=== PATIENT | male | born 1950 | race Caucasian/White ===

== ENCOUNTER 2018-09-02 01:01 | Outpatient (CLI) | payer MEDICARE ==
[2018-09-02 17:19] LABS: #Basophils 0.1 thou/uL (0.0-0.2); #Eosinphils 0.5 thou/uL (0.0-0.7); #Lymphocytes 1.2 thou/uL (1.20-3.40); #Monocytes 0.5 thou/uL (0.11-0.59); %Basophils 1.3 % (0.0-1.0); %Eosinophils 8.9 % (0.0-10.0); %Lymphocytes 23.3 % (21.0-51.0); %Monocytes 9.8 % (0.0-10.0); %Neutrophils 56.8 % (42.0-75.0); Hemoglobin 12.5 g/dL (14.0-18.0); Mean Corpuscular HGB CONC 33.1 g/dL (32.0-36.0); Mean Corpuscular Hemoglobin 32.5 pg (27.0-31.0); Mean Corpuscular Volume 98.2 fL (78.0-98.0); Mean Platelet Volume 7.1 fL (7.4-10.4); Platelet Count 232 thou/uL (130-400); RBC Distribution Width 10.9 % (11.5-14.5); Red Blood Cell (RBC) Count 3.83 mill/uL (4.70-6.10); White Blood Cell (WBC) Count 5.3 thou/uL (4.8-10.8)
[2018-09-02 17:32] LABS: Anion Gap 14 mmol/L (10-20); BUN (Urea Nitrogen) 20 mg/dL (8.4-25.7); Calc. Creatinine Clearance 0 mL/min (70-130); Calcium 9.4 mg/dL (7.8-10.44); Carbon Dioxide 25 mmol/L (23-31); Chloride 99 mmol/L (98-107); Estimated GFR-MDRD 69; Glucose 96 mg/dL (80-115); Sodium 134 mmol/L (136-145)
--- NOTE | 2018-09-03 18:13 | EKG ---
Test Reason : Blood Pressure : / mmHG Vent. Rate : 068 BPM Atrial Rate : 068 BPM P-R Int : 166 ms QRS Dur : 100 ms QT Int : 398 ms P-R-T Axes : 062 065 046 degrees QTc Int : 423 ms Normal sinus rhythm Normal ECG When compared with ECG of 02-DEC-2011 08:21, No significant change was found Confirmed by DR. Christine PALMER ([id number]) on 09/03/2018 6:13:31 PM Referred By: DEON Confirmed By:DR. Christine PALMER
== END 2018-09-02 01:02 | disposition home or self-care (01) ==
LOC: LABBT 01:01
PROVIDERS: ATTEND Orthopaedic Surgery
DX: Z01.818 Encounter for other preprocedural examination (principal); S83.206A Unspecified tear of unspecified meniscus, current injury, right knee, initial encounter
CPT/HCPCS: 80048; 85025; 93005; 93010

== ENCOUNTER → 2018-09-04 | Day surgery (SDC) | payer MEDICARE ==
[2018-09-02 16:21] VITALS: BMI 26.6
[~2018-09-04] MED LIST: Bupivacaine HCl 0.5%/Epinephrine 1:200,000/PF 30 ml Vial ONE; Dexamethasone 20 MG/5 ML VIAL ONE; Fentanyl 100 MCG/2 ML VIAL ONE; Ketorolac Tromethamine 30 MG/ML VIAL ONE; Lidocaine 1% PF 5 ML VIAL ONE; Lidocaine 2% w/Epinephrine 1:200K 20 ML VIAL ONE; Ondansetron PF 4 MG/2 ML Vial ONE; PROPOFOL 20 ML ONE; PROPOFOL 200 MG/20 ML VIAL ONE; ceFAZolin Sodium 2 GM/100 ML BAG ONE
--- NOTE | 2018-09-04 10:35 | OP ---
DATE OF PROCEDURE: 09/04/2018 PREOPERATIVE DIAGNOSIS: Right knee medial and lateral meniscus tear. POSTOPERATIVE DIAGNOSIS: Right knee medial and lateral meniscus tear. PROCEDURE PERFORMED: Right knee arthroscopy, partial medial and lateral meniscectomies. SWATCH FOLDER: None. ESTIMATED BLOOD LOSS: There was no blood loss. COMPLICATIONS: No significant complication. ANESTHESIA: He did have a general anesthetic as well as a local knee block. DISPOSITION: He went to recovery room in stable condition. INDICATIONS: This is an active 68-year-old male, who had mechanical complaints of pain and swelling and was found on MRI scan to have significant meniscal pathology with some mild chondromalacia. At this time, he opted to have surgery. DESCRIPTION OF PROCEDURE: After all appropriate consent forms were explained and signed, he was taken back to the operative room and at this time was given a general anesthetic. Once the level of anesthesia was appropriate, a tourniquet was placed on the right thigh and leg was placed in arthroscopic leg marrufo. The limb was then prepped and draped in standard surgical fashion. The limb was then exsanguinated and the tourniquet was taken to 300 mmHg. Inferolateral portal was established. Scope was placed into the knee joint. A needle localization technique was then used to make a medial working portal. Diagnostic arthroscopy commenced in the notch. ACL and PCL were probed, found to be intact. There was a large osteophyte along the lateral femoral condyle in the notch. This was left alone. The medial compartment overall shows some early chondromalacia on the tibia with little bit of fissuring, but for the most part, both the femur and the tibia on the medial side were in pretty good shape. There was a posterior horn of medial meniscus tear and a partial meniscectomy was performed using meniscal biter and shaver. In the lateral compartment, there was some wear centrally in the lateral tibial plateau. The femur itself was pretty good shape. There was a large flap tear of the anterior horn of the lateral meniscus and this was removed with the shaver and biter back to a stable base. The popliteus tendon was intact. The gutters were swept through. No loose bodies were noted. The patellofemoral joint showed the patella to be in good condition as well as the trochlea. At this time, scope was removed. Knee was drained. Portals were closed with simple nylon stitch. Bulky sterile dressing was applied. Tourniquet was let down. Toes pinked up nicely. The patient was awakened, taken to recovery room in stable condition. All counts were correct at the end of the case, and he did receive preoperative IV antibiotics. Job ID: [id number]
== END ==
LOC: SDC 05:34
PROVIDERS: ATTEND Orthopaedic Surgery
PROC: 0SBC4ZZ Excision of Right Knee Joint, Percutaneous Endoscopic Approach (ICD-10-PCS; principal; 2018-09-04)
PROC: 0SBC4ZZ Excision of Right Knee Joint, Percutaneous Endoscopic Approach (ICD-10-PCS; 2018-09-04)
DX: S83.241A Other tear of medial meniscus, current injury, right knee, initial encounter (principal); S83.281A Other tear of lateral meniscus, current injury, right knee, initial encounter; M94.261 Chondromalacia, right knee; K21.9 Gastro-esophageal reflux disease without esophagitis; M19.90 Unspecified osteoarthritis, unspecified site; J45.909 Unspecified asthma, uncomplicated; Z87.891 Personal history of nicotine dependence; Z79.899 Other long term (current) drug therapy; Z88.8 Allergy status to other drugs, medicaments and biological substances; X50.1XXA Overexertion from prolonged static or awkward postures, initial encounter
CPT/HCPCS: J0670; J0690; J1100; J1885; J2001; J2405; J2704; J3010

== ENCOUNTER 2022-09-28 09:52 | Outpatient (CLI) | payer MEDICARE ==
[2022-09-28 11:31] LABS: #Eosinphils 0.2 10x3/uL (0.0-0.5); #Monocytes 0.4 10x3/uL (0.0-1.1); #Neutrophils 1.9 10x3/uL (1.5-8.4); %Basophils 0.8 % (0.0-2.0); %Eosinophils 4.2 % (0.0-6.0); %Lymphocytes 28.9 % (18.0-47.0); %Monocytes 12.4 % (0.0-10.0); %Neutrophils 53.7 % (40.0-75.0); Hemoglobin 13.3 g/dL (13.5-17.5); Mean Corpuscular HGB CONC 33.5 g/dL (32.0-36.0); Mean Corpuscular Volume 95.7 fl (81.2-95.1); Platelet Count 171 10x3/uL (150-450); RBC Distribution Width 11.8 % (11.5-14.5); Red Blood Cell (RBC) Count 4.15 10x6/uL (4.32-5.72); White Blood Cell (WBC) Count 3.6 10x3/uL (3.5-10.5)
== END 2022-09-28 09:53 | disposition home or self-care (01) ==
LOC: LABBT 09:52
PROVIDERS: ATTEND Orthopaedic Surgery Hand Surgery
DX: Z01.818 Encounter for other preprocedural examination (principal); M19.042 Primary osteoarthritis, left hand
CPT/HCPCS: 85025; 93005; 93010

== ENCOUNTER 2022-10-03 06:08 | Day surgery (SDC) | payer MEDICARE ==
[2022-09-28 15:45] VITALS: BMI 24.3
[2022-10-03] MEDS ORDERED: Bupivacaine PF 0.5% 30 ML VIAL ONE ×2 (07:38→07:46)
[2022-10-03] MEDS ORDERED: Bacitracin Zinc Ointment 30 gm TUBE ONE (07:39)
[2022-10-03] MEDS ORDERED: Neomycin-Polymyxin 1 ML AMP ONE (07:39)
[2022-10-03] MEDS ORDERED: EPINEPHrine 1 MG/ML AMP ONE (07:46)
[2022-10-03] MEDS ORDERED: fentaNYL 50 mcg/mL 1 mL Vial ONE (07:46)
[2022-10-03] MEDS ORDERED: Sodium Chloride 0.9% 100 ML ONE (08:06)
[2022-10-03] MEDS ORDERED: CEFAZOLIN 2 GM VIAL ONE (08:06)
[2022-10-03] MEDS ORDERED: fentaNYL PF 100 MCG/2 ML SYRINGE ONE (08:09)
[2022-10-03] MEDS ORDERED: Lidocaine 1% PF 5 ML VIAL ONE (08:15)
[2022-10-03] MEDS ORDERED: PROPOFOL 200 MG/20 ML VIAL ONE (08:15)
[2022-10-03] MEDS ORDERED: Dexamethasone 20 MG/5 ML VIAL ONE (08:15)
[2022-10-03] MEDS ORDERED: ePHEDrine Sulfate 50 MG/10 ML VIAL ONE (08:15)
[2022-10-03] MEDS ORDERED: Ondansetron PF 4 MG/2 ML Vial ONE (08:15)
== END 2022-10-03 12:31 | disposition home or self-care (01) ==
LOC: SDC 06:08
PROVIDERS: ATTEND Orthopaedic Surgery Hand Surgery
PROC: 0RUT07Z Supplement Left Carpometacarpal Joint with Autologous Tissue Substitute, Open Approach (ICD-10-PCS; principal; 2022-10-03)
DX: M18.0 Bilateral primary osteoarthritis of first carpometacarpal joints (principal); M67.431 Ganglion, right wrist; K21.9 Gastro-esophageal reflux disease without esophagitis; J45.909 Unspecified asthma, uncomplicated; G47.33 Obstructive sleep apnea (adult) (pediatric); Z87.891 Personal history of nicotine dependence; Z79.82 Long term (current) use of aspirin; Z79.899 Other long term (current) drug therapy; Z88.8 Allergy status to other drugs, medicaments and biological substances
CPT/HCPCS: 25310; 25447; 73120; J3010; C1776; J0171; J1100; J2405; J2704; J3490; S0020

== ENCOUNTER 2022-12-05 19:30 | Outpatient (CLI) | payer MEDICARE | END 2022-12-05 19:31 | disposition home or self-care (01) | LOC: SLEEPLAB 19:30 | PROVIDERS: ATTEND Family Medicine | DX: G47.33 Obstructive sleep apnea (adult) (pediatric) (principal); R53.83 Other fatigue; I10 Essential (primary) hypertension | CPT/HCPCS: 95810 ==